=== PATIENT | female | born 1955 | race Asian ===

== ENCOUNTER 2017-08-30 20:18 | Inpatient (IN) | payer SELFPAY ==
[2017-08-30] MEDS ORDERED: Labetalol HCl 100 MG/20 ML VIAL ONE (21:12)
[2017-08-30 22:20] LABS: Troponin I Less than 0.010 ng/mL (< 0.028)
[2017-08-30 23:25] VITALS: BMI 24.3
[2017-08-31] MEDS ORDERED: hydrALAZINE 20 MG/ML VIAL SLOW IVP PRN (00:01)
[2017-08-31] MEDS ORDERED: hydrALAZINE 20 MG/ML VIAL SLOW IVP SCH (00:01)
[2017-08-31 01:24] LABS: Troponin I Less than 0.010 ng/mL (< 0.028)
[2017-08-31] MEDS ORDERED: Diabetic Tussin 200 MG/10 ML UDCUP PO PRN (03:30)
[2017-08-31] MEDS ORDERED: Ondansetron HCl/PF 4 MG/2 ML Vial SLOW IVP SCH (03:30)
[2017-08-31] MEDS ORDERED: Ondansetron HCl/PF 4 MG/2 ML Vial SLOW IVP PRN (03:30)
[2017-08-31] MEDS ORDERED: Artificial Tears 18 DROP/0.9 ML EA EYE PRN (07:30)
[2017-08-31] MEDS ORDERED: Eucerin (Mineral Oil/Petrolatum,White) 30 gm Jar TOP PRN (07:30)
[2017-08-31] MEDS ORDERED: Zolpidem Tartrate 5 MG TAB PO PRN (07:30)
[2017-08-31] MEDS ORDERED: Loratadine 10 MG TAB PO PRN (07:30)
[2017-08-31] MEDS ORDERED: Nitroglycerin 0.4 MG TAB (25 Tab Bottle) SL PRN (07:30)
[2017-08-31] MEDS ORDERED: Mag-Al 1200 mg/1200 mg/30 ML UDCUP PO PRN (07:30)
[2017-08-31] MEDS ORDERED: Milk Of Magnesia 30 ML UDCUP PO PRN ×2 (07:30)
[2017-08-31] MEDS ORDERED: HYDROcodone/Acetaminophen 5/325 mg Tablet PO PRN (07:30)
[2017-08-31] MEDS ORDERED: Ondansetron HCl/PF 4 MG/2 ML Vial IVP PRN (07:30)
[2017-08-31] MEDS ORDERED: Chloraseptic Spray 180 ml Bottle PO PRN (07:30)
[2017-08-31] MEDS ORDERED: Loperamide HCl 2 MG CAP PO PRN (07:30)
[2017-08-31] MEDS ORDERED: Ondansetron ODT 4 MG TAB PO PRN (07:30)
[2017-08-31] MEDS ORDERED: Sodium Chloride 0.65% Nasal 44 ML BOT EA NARE PRN (07:30)
[2017-08-31] MEDS ORDERED: Temazepam 15 MG CAP PO PRN (07:30)
[2017-08-31] MEDS ORDERED: Acetaminophen 325 MG TAB PO PRN (07:30)
[2017-08-31] MEDS ORDERED: cloNIDine 0.1 MG TAB PO PRN (07:30)
[2017-08-31] MEDS ORDERED: Senokot 8.6 MG TAB PO PRN ×2 (07:30)
[2017-08-31 08:17] LABS: Cardiac Risk 4.1 (Less than 4.5)
[2017-08-31] MEDS ORDERED: Cyanocobalamin (Vitamin B-12) 1,000 MCG TAB PO SCH (09:00)
[2017-08-31] MEDS ORDERED: Fish Oil 1,000 MG CAP PO SCH (09:00)
[2017-08-31] MEDS ORDERED: Enoxaparin Sodium 40 MG/0.4 ML SYRINGE SC SCH (09:00)
[2017-08-31] MEDS ORDERED: Famotidine 20 MG TAB PO SCH (09:00)
[2017-08-31] MEDS ORDERED: Lisinopril 5 MG TAB PO SCH (09:30)
--- NOTE | 2017-08-31 12:21 | HP ---
PRIMARY CARE PHYSICIAN: Dr. Radha Cruz REASON FOR ADMISSION: Transferred from [facility] for chest pain and hypertensive urgen cy. HISTORY OF PRESENT ILLNESS: A 62-year-old Palestinian female who has previous history of hypertension a s well as dyslipidemia, but patient was not taking any medication because she has believed that medic ation caused side effects and that is why she tries to control her disease with a diet. Whenever the patient was following for a routine check from her primary care physician, the patient w as found with dyslipidemia, and elevated blood pressure, but patient was never started on any antihyp ertensive medications. The patient went to [place] and she was trying some non- pharmacological way to control her blood pressure and cholesterol, but [place] she never saw her primary care physician. The patient went to [facility] because she was feeling choking sensation in her throat a s well as chest discomfort. She was feeling dizziness and headache. This was started yesterday morning time. Subsequently, the patient arrested and her symptoms were continuously having dizzin ess and headache. The patient was able to do all her routine activities during daytime, but in ng time again she was having chest discomfort and choking sensation with a headache, that is why the patient's asked her to go to the emergency room. The patient checked her blood pressure at home and her blood pressure was elevated and that is why david ball family member was alarmed and took her to the ER. Initially she was evaluated at [facility] and her blood pressure was very high with 212/111. The patient denies any anxiety. She blanco s not have any pain anywhere in her body. The patient was not having any focal motor or sensory symp toms. She was only feeling heaviness in her head and dizziness and with chest discomfort. She denie s any orthopnea, PND or leg swelling. She denies any shortness of breath on exertion. At [facility], the patient was given nitro patch, sublingual nitroglycerin, labetalol an d subsequently the patient was sent to our emergency room for evaluation. The patient was still hypertensive in our emergency room and the patient was given labetalol 10 mg IV push in our Emergency Room and subsequently she was admitted to telemetry floor as a full admission for close monitoring. When I saw this patient this morning, the patient was completely asymptomatic. She does not have any chest pain or shortness of breath. Her headache is also resolved. REVIEW OF SYSTEMS: The following complete review of systems was negative, unless otherwise mentioned in the HPI or below: Constitutional: Weight loss or gain, ability to conduct usual activities. Skin: Rash, itching. Eyes: Double vision, pain. ENT/Mouth: Nose bleeding, neck stiffness, pain, tenderness. Cardiovascular: Palpitations, dyspnea on exertion, orthopnea. Respiratory: Shortness of breath, wheezing, cough, hemoptysis, fever or night sweats. Gastrointestinal: Poor appetite, abdominal pain, heartburn, nausea, vomiting, constipation, or diarrhea. Genitourinary: Urgency, frequency, dysuria, nocturia. Musculoskeletal: Pain, swelling. Neurologic/Psychiatric: Anxiety, depression. Allergy/Immunologic: Skin rash, bleeding tendency. Please see my HPI for pertinent positive and negative. All other review of systems reviewed and nega tive except as mentioned in the HPI. ALLERGIES: No known drug allergy. CURRENT HOME MEDICATIONS: The patient is not taking any prescribed or non-prescribed medication. PAST MEDICAL HISTORY: Hypertension, dyslipidemia, but not on any specific therapy. PAST SURGICAL HISTORY: Reviewed and negative. PAST PSYCHIATRIC HISTORY: Reviewed and negative. HOME MEDICATIONS: The patient is not taking any prescribed medication, but mostly patient is taking over the counter medication including vitamin D3 1000 units p.o. daily, vitamin B12 2500 mcg daily, B enadryl 25 mg p.o. at bedtime p.r.n., Tresa-D 1 tablet b.i.d. p.r.n., fish oil 1000 mg p.o. daily, and Centrum Silver 1 tablet p.o. daily. SOCIAL HISTORY: The patient is and lives at home with her . No history of tobacco, a lcohol or illicit drug abuse. FAMILY HISTORY: Hypertension runs among several family members. One of the sisters also required a pacemaker. No strong family history of cancer or stroke. EMERGENCY ROOM COURSE: The patient was given labetalol 10 mg IV push in our emergency room and landy green was given nitroglycerin sublingual, nitropatch and labetalol at the [facility]. PHYSICAL EXAMINATION: VITAL SIGNS: Most recently currently blood pressure 154/74, pulse 87, respiratory rate 16, temperatu re 98.0, saturation 98% on room air, weight 124 pounds. GENERAL: The patient is currently alert, awake, no obvious acute distress. HEENT: Head; normocephalic, atraumatic. Eyes: Pupils round, reactive to light. Extraocular muscle intact. ENT: Oropharynx within normal limits. Moist mucous membranes, no oral lesion, no pharynge al erythema, no exudate. NECK: Supple, no JVD, no thyromegaly, no carotid bruit, no jugular venous distention. LUNGS: Clear to auscultation without any rhonchi or rales. CARDIAC: S1, S2 regular without any murmur. ABDOMEN: Soft, bowel sounds present, nontender, nondistended. No organomegaly, no mass, no suprapub ic tenderness. BACK: Unremarkable, no CVA tenderness. EXTREMITIES: Upper extremity passive movement of all joints are normal. Lower extremities: No arias a. Good peripheral pulsation, no calf tenderness. SKIN: No skin rash. HEMATOLOGICAL: No lymphadenopathy. PSYCHIATRIC: Normal affect. SIGNIFICANT LABS: EKG showing normal sinus rhythm without any ischemic changes. CBC: WBC 10.6, hem oglobin 14.4, platelets 386. BMP; sodium 139, potassium 3.9, chloride 97, carbon dioxide 23, BUN 11 , creatinine 0.88, glucose of 95, calcium 9.7. LFTs: AST 27, ALT 27, alkaline phosphatase 92, album in 4.7. Cardiac enzymes negative x3. Triglycerides 66, cholesterol 253, LDL 178, HDL 62. Chest x-ray based on my review, no acute cardiopulmonary process. ASSESSMENT AND PLAN: 1. Chest pain. The patient's chest pain description is atypical. I am suspecting her chest pain is related with hypertensive heart disease. This patient also has on and off recurrent chest discomfor t at home. Given her risk profile including age, untreated hypertension and untreated cholesterol pr oblem, she is at mild to moderate risk of coronary artery disease. At this point, cardiac exam is no t showing any ischemic changes and her troponin is already negative x3. In this way, we have already excluded acute coronary syndrome. For further evaluation and to rule out underlying ischemia we nee d to do a stress test. The patient agreed to go for stress test and will perform exercise Cardiolite stress test and if that is normal, then we will consider discharging her home with her antihypertens jamal medication and statin therapy. Meanwhile, we will continue with aspirin 325 mg p.o. daily, nitro patch q.8 hourly. A lipid profile checked and we are starting Lipitor 40 mg p.o. at bedtime. Health y lifestyle measures discussed with the patient. We will prescribe metoprolol and lisinopril upon di scharge. 2. Hypertensive urgency, likely due to inability to take medication and noncompliance with medicatio n. The patient will be given metoprolol 25 mg twice daily as well as lisinopril 5 mg p.o. b.i.d. for blood pressure and patient is advised to monitor her blood pressure at home and see primary care vikram nuñez for further adjustment of therapy. Dietary instruction given. 3. Dyslipidemia. The patient will need statin therapy and that is why we will start Lipitor 40 mg p .o. at bedtime. 4. Deep venous thrombosis prophylaxis not needed because we are expecting discharge in 24 hours. 5. Gastrointestinal prophylaxis, Pepcid 20 mg p.o. b.i.d. 6. Code status: The patient is full code. The patient's is surrogate decision maker. Disposition plan based on clinical course and stress test result. We will consider discharging her i n 24-48 hours. Plan of care discussed with the patient in detail.
[2017-08-31 13:27] VITALS: TEMP 98.2
--- NOTE | 2017-08-31 13:44 | NM ---
NUCLEAR MEDICINE CARDIAC MYOCARDIAL PERFUSION SPECT EJECTION FRACTION STUDY WALL MOTION CINE: DATE: 08/31/17. HISTORY: A 62-year-old female with acute chest pain. TECHNIQUE: Number of days: 1. Rest study: Tc99m sestamibi (Cardiolite) dose: 9.0 mCi. Exercise stress: treadmill. Stress study: Tc99m sestamibi (Cardiolite) dose: 31.0 mCi. FINDINGS: CARDIAC (MYOCARDIAL PERFUSION) SPECT Distribution of sestamibi is homogeneous throughout the left ventricle, with no fixed or reversible m yocardial perfusion defects. EJECTION FRACTION STUDY EF = 80% WALL MOTION CINE The left ventricular wall motion is normal. There is normal systolic wall thickening. IMPRESSION: Normal. selvin[] POS: ERIC
[2017-08-31 14:04] VITALS: BP 192/97
--- NOTE | 2017-08-31 14:04 | DIS ---
DATE OF ADMISSION: 08/30/2017 DATE OF DISCHARGE: 08/31/2017 PRIMARY CARE PHYSICIAN: Radha Cruz D.O. DISCHARGE DISPOSITION: Home. PRIMARY DISCHARGE DIAGNOSES: 1. Chest pain, ruled out acute coronary syndrome. 2. Hypertensive urgency. 3. Dyslipidemia. SECONDARY DISCHARGE DIAGNOSES: History of hypertension and dyslipidemia. PRIMARY PROCEDURE/OPERATION: None. RADIOLOGICAL INVESTIGATION: Chest x-ray normal. Stress test negative. SIGNIFICANT LABORATORY: CBC normal. BMP normal. LFT normal. LDL 178. Urinalysis unremarkable. DISCHARGE MEDICATIONS: Aspirin 81 mg p.o. daily, Lipitor 40 mg p.o. at bedtime, clonidine 0.1 mg p.o . q.6 hourly p.r.n., lisinopril 5 mg p.o. b.i.d., Metoprolol 25 mg p.o. b.i.d. CONTRAINDICATIONS: None. CODE STATUS: Full code. INPATIENT CONSULTANTS: None. ALLERGIES: No known drug allergy. DISCHARGE PLAN: Post hospital, the patient will follow up with primary care physician in 1 or 2 week s. HOSPITAL COURSE: A 62-year-old female who was having chest heaviness as well as headache. She check ed her blood pressure at home, which was very high and this was ongoing intermittently at home and th at is why she went to [facility] where workup was unremarkable. She was sent to our [facility] for rule out acute coronary syndrome. Her blood pressure was very high at [facility] as well as in our emergency room. The patient was not taking any medication for blood pres sure and high cholesterol and so we started Lipitor as well as metoprolol, lisinopril and clonidine w as given to use as needed basis. The patient is instructed to monitor blood pressure at home more frequently and see primary care phys hollyan within a week. At this point, the patient is medically stable for discharge. She is chest alice n free. Plan of care discussed with the patient and the patient's as well as family member.
[2017-08-31] MEDS ORDERED: Atorvastatin Calcium 40 MG TAB PO SCH (21:00)
[2017-09-01] MEDS ORDERED: Lisinopril 5 MG TAB PO SCH (09:00)
== END 2017-08-31 16:06 | disposition home or self-care (01) | DRG 305 ==
LOC: ERS 20:18 → 2SE 21:10
PROVIDERS: ADMIT Internal Medicine; ATTEND Internal Medicine
DX: I16.0 Hypertensive urgency (principal); E78.5 Hyperlipidemia, unspecified; Z82.49 Family history of ischemic heart disease and other diseases of the circulatory system; I10 Essential (primary) hypertension
CPT/HCPCS: 36415; 36416; 78452; 80061; 84484; 93017; 96374; A9500; J0360; J2405